=== PATIENT | female | born 1980 | race African-American/Black ===

== ENCOUNTER 2018-03-07 15:52 | Emergency (ER) | payer OTHER ==
[~2018-03-07] VITALS: Ht 185.4 cm; Wt 93.9 kg
[2018-03-07] MEDS ORDERED: MOBIC15 MG PO (17:11)
[2018-03-07] MEDS ORDERED: FLEXERIL PO (17:11)
[2018-03-07] MEDS ORDERED: MEDROLDOSEPACK PO (17:11)
[2018-03-07 17:35] VITALS: BP 133/87
== END 2018-03-07 17:37 | disposition home or self-care (01) ==
LOC: ER 15:52
DX: S39.012A Strain of muscle, fascia and tendon of lower back, initial encounter (principal); S20.212A Contusion of left front wall of thorax, initial encounter; F17.210 Nicotine dependence, cigarettes, uncomplicated; Z98.890 Other specified postprocedural states; V89.2XXA Person injured in unspecified motor-vehicle accident, traffic, initial encounter; Y93.89 Activity, other specified; Y92.89 Other specified places as the place of occurrence of the external cause; Y99.8 Other external cause status